=== PATIENT | female | born 1990 | race African-American/Black ===

== ENCOUNTER 2018-11-04 16:10 | Outpatient (CLI) | payer OTHER ==
--- NOTE | 2018-11-04 17:26 | RAD ---
FRONTAL AND LATERAL IMAGING CHEST 11/04/18 COMPARISON: 10/29/18 HISTORY: Pneumonia of the left lower lobe. FINDINGS: No pneumothorax, pleural fluid, focal consolidation, or alveolar edema. Heart and mediastinal contour s are unremarkable. IMPRESSION: No acute findings. POS: [facility]
== END 2018-11-04 16:11 | disposition home or self-care (01) ==
LOC: BICRAD 16:10
PROVIDERS: ATTEND Family Medicine
DX: J18.1 Lobar pneumonia, unspecified organism (principal)
CPT/HCPCS: 71046

== ENCOUNTER 2025-08-29 13:39 | Outpatient (CLI) | payer BC | END 2025-08-29 13:40 | disposition home or self-care (01) | LOC: SCSRAD 13:39 | PROVIDERS: ATTEND Family Medicine | DX: R07.89 Other chest pain (principal) | CPT/HCPCS: 71046 ==